=== PATIENT | female | born 1975 | race Caucasian/White ===

== ENCOUNTER 2016-11-07 18:09 | Emergency (ER) | payer OTHER ==
[~2016-11-07] VITALS: Ht 170.2 cm; Wt 54.4 kg
[~2016-11-07 18:09] MED LIST: ANTIFUNGAL15 G1 VAG; CELEXA40 MG; COLACE100 MG PO; DOXYCYCLINE 10100 MG; FLAGYL500 MG; FLAGYL500 MG PO; HYDROCODON-ACE1 EAC2; PERCOCET 5-3251 EACH PO; TORADOL 10 MG T10 MG PO; ZOFRAN4 MG PO
[2016-11-07] MEDS ORDERED: MS CONTIN15 MG (18:31)
[2016-11-07] MEDS ORDERED: ZANAFLEX4 MG PO (18:32)
[2016-11-07] MEDS ORDERED: ADDERALL 30 MG30 MG (18:32)
[2016-11-07] MEDS ORDERED: CYMBALTA30 MG PO (18:32)
[2016-11-07] MEDS ORDERED: SEROQUEL 50 MG50 MG (18:33)
[2016-11-07 19:45] VITALS: BP 114/77
[2016-11-07] MEDS ORDERED: MS CONTIN15 MG PO (19:45)
== END 2016-11-07 19:45 | disposition home or self-care (01) ==
LOC: ER 18:09
DX: S16.1XXA Strain of muscle, fascia and tendon at neck level, initial encounter (principal); S29.012A Strain of muscle and tendon of back wall of thorax, initial encounter; M25.551 Pain in right hip; R11.2 Nausea with vomiting, unspecified; F17.210 Nicotine dependence, cigarettes, uncomplicated; Z88.0 Allergy status to penicillin; V43.52XA Car driver injured in collision with other type car in traffic accident, initial encounter; Y93.I9 Activity, other involving external motion; Y92.89 Other specified places as the place of occurrence of the external cause; Y99.8 Other external cause status